=== PATIENT | male | born 1955 | race Caucasian/White ===

== ENCOUNTER 2019-10-28 09:04 | Outpatient (CLI) | payer OTHER | END 2019-10-28 09:05 | disposition EMS.NT | LOC: EMS 09:04 | PROVIDERS: ATTEND Surgery | DX: R68.84 Jaw pain (principal); H53.8 Other visual disturbances; R03.0 Elevated blood-pressure reading, without diagnosis of hypertension ==

== ENCOUNTER 2020-09-25 23:01 | Emergency (ER) | payer OTHER ==
[2020-09-25] MEDS ORDERED: SODIUM CHLORIDE 0.9% 1,000 ML IV STA (23:38)
[2020-09-25] MEDS ORDERED: KETOROLAC 15 MG/ML VIAL IVP STA (23:38)
[2020-09-25] MEDS ORDERED: HYDROmorphone 1 MG/ML CARPUJECT IVP STA (23:38)
[2020-09-25] MEDS ORDERED: IOPAMIDOL-300 100 ML VIAL ONE (23:46)
[2020-09-26 00:04] LABS: BASOPHILS # (AUTO) 0.1 10^3/uL (0.0-0.1); BASOPHILS % (AUTO) 0.3 %; EOSINOPHILS # (AUTO) 0.1 10^3/uL (0.0-0.7); EOSINOPHILS % (AUTO) 0.7 %; HCT - HEMATOCRIT 46.4 % (42.0-52.0); HGB - HEMOGLOBIN 15.5 g/dL (14.0-18.0); LYMPHOCYTES # (AUTO) 1.9 10^3/uL (1.5-3.5); LYMPHOCYTES % (AUTO) 11.3 %; MEAN CORPUSCULAR HEMOGLOBIN 28.7 pg (27.0-31.0); MEAN CORPUSCULAR HGB CONC 33.4 g/dL (32.0-36.0); MEAN CORPUSCULAR VOLUME 85.8 fL (80.0-94.0); MEAN PLATELET VOLUME 12.2 fL (7.4-11.4); MONOCYTES # (AUTO) 1.2 10^3/uL (0.0-1.0); MONOCYTES % (AUTO) 7.3 %; NEUTROPHILS # (AUTO) 13.2 10^3/uL (1.5-6.6); NEUTROPHILS % (AUTO) 79.8 %; PLT - PLATELET COUNT 194 10^3/uL (130-450); RED BLOOD COUNT 5.41 10^6/uL (4.70-6.10); RED CELL DISTRIBUTION WIDTH 12.7 % (12.0-15.0); WHITE BLOOD COUNT 16.5 x10^3/uL (4.8-10.8)
[2020-09-26 00:08] LABS: BILIRUBIN,URINE NEGATIVE (NEGATIVE); GLUCOSE, URINE (UA) NEGATIVE (NEGATIVE); KETONES,URINE (UA) NEGATIVE (NEGATIVE); LEUKOCYTE ESTERASE, URINE NEGATIVE (NEGATIVE); NITRITE,URINE NEGATIVE (NEGATIVE); OCCULT BLOOD,URINE NEGATIVE (NEGATIVE); PH,URINE 5.5 PH (5.0-7.5); PROTEIN,URINE NEGATIVE (NEGATIVE); UROBILINOGEN,URINE 0.2 (NORMAL) E.U./dL (NORMAL)
[2020-09-26 00:10] LABS: CLARITY,URINE CLEAR (CLEAR)
[2020-09-26 00:18] LABS: ALBUMIN 4.9 g/dL (3.2-5.5); ALBUMIN/GLOBULIN RATIO 1.1 (1.0-2.2); ALKALINE PHOSPHATASE 78 IU/L (42-121); ALT ALANINE AMINOTRANSFERASE 35 IU/L (10-60); AST ASPARTATE AMINOTRANSFERASE 30 IU/L (10-42); BUN - BLOOD UREA NITROGEN 34 mg/dL (6-20); CALCIUM 9.7 mg/dL (8.5-10.3); CARBON DIOXIDE - CO2 24 mmol/L (21-32); CHLORIDE 102 mmol/L (101-111); CREATININE 1.6 mg/dL (0.6-1.2); ETOH - ETHANOL < 5.0 mg/dL; GFR - MDRD 44 (>89); GLUCOSE 144 mg/dL (70-100); LIPASE 32 U/L (22-51); MAGNESIUM 2.1 mg/dL (1.7-2.8); POTASSIUM 4.3 mmol/L (3.5-5.0); SODIUM 136 mmol/L (135-145); TOTAL PROTEIN 9.4 g/dL (6.7-8.2)
[2020-09-26] MEDS ORDERED: IOPAMIDOL-300 100 ML VIAL IVP ONE (00:47)
--- NOTE | 2020-09-26 00:53 | ED Physician Documentation ---
PD HPI ABD PAIN - Stated complaint Stated Complaint: SOA - Chief complaint Chief Complaint: Abd Pain - History obtained from History obtained from: Patient - History of Present Illness Timing - onset: How many weeks ago (1) Timing - duration: Weeks (1) Timing - details: Gradual onset, Still present Quality: Cramping, Aching (The patient started with pain in the right mid to lower abdomen about a week ago which persisted and is associated with distention of the abdomen. He now feels distended enough abdomen to have dyspnea into the right chest area.), Fullness/distended (gradual onset/worsening over 5-6 days), Pain Location: Periumbilical, RLQ Radiation: Right flank Improved by: No: BM Worsened by: Eating, Moving, Palpation Associated symptoms: Nausea, Loss of appetite, Other (abdominal distension with now dyspnea when lying.). No: Fever, Diarrhea, Constipation Similar symptoms before: Has not had sx before Recently seen: Clinic (got COVID vaccine 2nd shot just over 2 weeks ago. No real symptoms afterward, just sore arm few days.), Not recently seen, Other (had run out of 2 usual meds metoprolol and chlorthalidone, about 4-5 days ago, but was already having the right abd pain at that point. Trying to get refill through his pharmacy.) Review of Systems Constitutional: denies: Fever, Chills Nose: denies: Rhinorrhea / runny nose, Congestion Throat: denies: Sore throat Cardiac: denies: Chest pain / pressure, Palpitations Respiratory: reports: Dyspnea (just the past day with abd fullness increased). denies: Cough GI: reports: Abdominal Pain, Abdominal Swelling, Nausea. 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 ) Respiratory: None Neuro: None Endocrine/Autoimmune: None GI: Hepatitis (Prior Hep C and underwent treatment for it few years ago without problems. No prior inflammation of the liver. ) : None - Past Surgical History Past Surgical History: Yes Cardiovascular: CABG - Present Medications Home Medications: Ambulatory Orders Medication Instructions Recorded Confirmed Amlodipine Besylate [Norvasc] 10 mg PO DAILY 09/25/20 09/25/20 Atorvastatin Calcium 40 mg PO DAILY 09/25/20 09/25/20 Chlorthalidone 25 mg PO DAILY 09/25/20 09/25/20 Losartan Potassium [Cozaar] 100 mg PO DAILY 09/25/20 09/25/20 Metoprolol Tartrate [Lopressor] 25 mg PO DAILY 09/25/20 09/25/20 Spironolactone [Aldactone] 25 mg PO DAILY 09/25/20 09/25/20 Chlorthalidone 25 mg PO DAILY 10 Days #10 tablet 09/26/20 Docusate Sodium 100Mg Capsule 100 mg PO DAILY #10 cap 09/26/20 [Colace 100Mg Capsule] Ibuprofen [Motrin] 600 mg PO TID PRN #15 tab 09/26/20 Metoprolol Tartrate [Lopressor] 25 mg PO DAILY 10 Days #10 tablet 09/26/20 Ondansetron Odt [Zofran] 4 mg TL Q6H PRN #10 tablet 09/26/20 - Allergies Allergies/Adverse Reactions: Allergies Allergy/AdvReac Type Severity Reaction Status Date / Time oxycodone [From OxyContin] AdvReac Hallucinati Verified 09/25/20 23:04 ons - Social History Does the pt smoke?: No Smoking Status: Never smoker Does the pt drink ETOH?: No Does the pt have substance abuse?: No - Immunizations Immunizations are current?: Yes PD ED PE NORMAL - Vitals Vital signs reviewed: Yes - General General: Alert and oriented X 3, Well developed/nourished, Other (appears uncomfortable due to abd distension and pain. Lungs are clear and breathing unlabored. ) - HEENT HEENT: PERRL, EOMI (nonicteric), Pharynx benign - Neck Neck: Supple, no meningeal sign, No adenopathy - Cardiac Cardiac: RRR (mild tachycardic), No murmur - Respiratory Respiratory: No respiratory distress, Clear bilaterally - Abdomen Abdomen: Soft, Other (tensely distended with general mild tenderness. Main focal tenderness RLQ with local guarding and percussion tender. ). No: Normal bowel sounds (absent/minimal sounds) - Male Male : Deferred - Rectal Rectal: Deferred - Back Back: No CVA TTP - Derm Derm: Normal color, Warm and dry - Extremities Extremities: No tenderness to palpate, No edema, No calf tenderness / cord - Neuro Neuro: Alert and oriented X 3, No motor deficit, Normal speech Results - Vitals Vitals: Vital Signs - 24 hr 09/25/20 09/25/20 09/26/20 23:04 23:30 00:00 Temperature 36.7 C Heart Rate 100 109 H 103 H Respiratory 24 19 18 Rate Blood Pressure 174/100 H 128/96 H 133/100 H O2 Saturation 95 98 98 09/26/20 00:30 Temperature 36.5 C Heart Rate 98 Respiratory 16 Rate Blood Pressure 130/96 H O2 Saturation 99 Oxygen O2 Source Room air - Labs Labs: Laboratory Tests 09/25/20 09/25/20 09/26/20 23:58 23:58 00:00 WBC 16.5 H RBC 5.41 Hgb 15.5 Hct 46.4 MCV 85.8 MCH 28.7 MCHC 33.4 RDW 12.7 Plt Count 194 MPV 12.2 H Neut # (Auto) 13.2 H Lymph # (Auto) 1.9 [place] # (Auto) 1.2 H Eos # (Auto) 0.1 Baso # (Auto) 0.1 Absolute Nucleated RBC 0.00 Nucleated RBC % 0.0 Sodium 136 Potassium 4.3 Chloride 102 Carbon Dioxide 24 Anion Gap 10.0 BUN 34 H Creatinine 1.6 H Estimated GFR (MDRD) 44 L Glucose 144 H Calcium 9.7 Magnesium 2.1 Total Bilirubin 1.0 AST 30 ALT 35 Alkaline Phosphatase 78 Total Protein 9.4 H Albumin 4.9 Globulin 4.5 H Albumin/Globulin Ratio 1.1 Lipase 32 Urine Color YELLOW Urine Clarity CLEAR Urine pH 5.5 Ur Specific [place] 1.025 Urine Protein NEGATIVE Urine Glucose (UA) NEGATIVE Urine Ketones NEGATIVE Urine Occult Blood NEGATIVE Urine Nitrite NEGATIVE Urine Bilirubin NEGATIVE Urine Urobilinogen 0.2 (NORMAL) Ur Leukocyte Esterase NEGATIVE Ur Microscopic Review NOT INDICATED Urine Culture Comments NOT INDICATED Ethyl Alcohol < 5.0 - Rads (name of study) chest xray Radiology: Prelim report reviewed (no acute infiltrates nor fluid.), See rad report abd CT Radiology: Prelim report reviewed (normal without acute process (normal appendix, no ascites, no perforation, no obstruction).), See rad report PD MEDICAL DECISION MAKING - ED course Complexity details: reviewed results (CT abd not showing any acute process. Interesting. WBC elevated. Not sure what is the process then. Coached him to recheck in 24-36 hours. ), re-evaluated patient, considered differential (Presents with dyspnea which seems to relate to his abdominal distention and pushing up of the diaphragm. He started with abdominal pain in the right lower quadrant associated with distention nausea but normal bowel movements. No prior abdominal surgeries. Consideration for appendicitis with ileus.), d/w patient ED course: no leg edema and does not seem fluid overload, so doubt ascitic distension. Decreased bowel sounds. Pain RLQ. may be ileus instead with abd process such as appendix or such. CT reading is normal (everything). As such, it would be hard to justify OBS for this. He states his pain is lessened. Will discharge with instructions for close followup and return to ER in 30-36 hours if not improved, sooner if worse. Departure - Departure Clinical Impression: Right lower quadrant abdominal pain, Abdominal distension Leukocytosis Qualifiers: Leukocytosis type: unspecified Qualified Code(s): D72.829 - Elevated white blood cell count, unspecified Clinical Impression: (Ruled Out): Appendicitis Condition: Stable Record reviewed to determine appropriate education?: Yes Instructions: ED Abdominal Pain Unkn Cause Follow-Up: Beltran Capone MD [Primary Care Provider] - Prescriptions: Chlorthalidone 25 mg PO DAILY 10 Days #10 tablet Docusate Sodium 100Mg Capsule [Colace 100Mg Capsule] 100 mg PO DAILY #10 cap Metoprolol Tartrate [Lopressor] 25 mg PO DAILY 10 Days #10 tablet Ibuprofen [Motrin] 600 mg PO TID PRN #15 tab PRN Reason: Pain Ondansetron Odt [Zofran] 4 mg TL Q6H PRN #10 tablet PRN Reason: Nausea / Vomiting Comments: Its not clear the cause of your abdominal pain and distention at this time. Your CT scan is read as a normal appendix and gallbladder and no signs of obstruction, tumors, ascites or kidney stone. However it is concerning that you have had the pain on the right side in the stomach distention. I would suggest some anti-inflammatory such as ibuprofen with food 3 times a day for the next 2 to 3 days as well as a stool softener and medication for nausea and pain. Continue usual medications and I wrote short-term prescription for the two you had run out of. I do not believe being out of those medicines is the cause for your current symptoms though. I would urge you to recheck here in the ER if your symptoms have not improved significantly by which is in 1-1/2 days. Return sooner if worsened. No need in particular for follow-up if you are just feeling better.
[2020-09-26] MEDS ORDERED: SENNA 8.6 MG TABLET PO STA (01:54)
[2020-09-26] MEDS ORDERED: METOPROLOL SUCCINATE 25 MG TABLET PO STA (01:54)
[2020-09-26] MEDS ORDERED: DOCUSATE SODIUM 100 MG CAPSULE PO STA (01:54)
[2020-09-26 02:08] VITALS: BP 127/73
--- NOTE | 2020-09-26 08:23 | XRAY Report ---
PROCEDURE: Chest 1 View X-Ray INDICATIONS: chest pain TECHNIQUE: One view of the chest was acquired. COMPARISON: Prior two-view chest 02/19/2016. FINDINGS: Surgical changes and devices: Sternotomy wires, presumed prior CABG.. Lungs and pleura: No pleural effusions or pneumothorax. Lungs are clear considering reduced inspira tory volume. There is crowding of the bronchovascular markings at each lower lung.. Mediastinum: Mediastinal contours appear normal. Heart size is normal. Bones and chest wall: No suspicious bony lesions. Overlying soft tissues appear unremarkable. IMPRESSION: Reduced inspiratory volume, lung base atelectasis. Given the reduced inspiration presence or absence of mild or early pneumonia at each lung base cannot be entirely excluded. Reviewed by: Reggie Valderrama MD on 09/26/2020 8:22 AM PDT Approved by: Reggie Valderrama MD on 09/26/2020 8:22 AM PDT Station ID: [id number]
--- NOTE | 2020-09-26 09:22 | CT Report ---
PROCEDURE: Abdomen/Pelvis W INDICATIONS: RLQ pain and abd distension for few days CONTRAST: IV CONTRAST: Isovue 300 ml: 100 PO CONTRAST: *NO PO CONTRAST TECHNIQUE: After the administration of IV contrast, 5 mm thick sections acquired from the diaphragms to the symp hysis. 5 mm thick coronal and sagittal reformats were acquired. For radiation dose reduction, the f ollowing was used: automated exposure control, adjustment of mA and/or kV according to patient size. COMPARISON: None. FINDINGS: Image quality: Excellent. ABDOMEN: Lung bases: Scattered subsegmental scarring/atelectasis. No acute consolidation. Heart:Normal. Severe coronary artery calcifications are present. Liver: Normal. There is trace perihepatic fluid. Gallbladder: Negative Bile ducts: Normal. Pancreas: Normal. Spleen: Normal. Adrenals: Normal. Kidneys: Subcentimeter renal foci which are statistically cysts, however too to characterize accurate ly and therefore technically indeterminate. No hydronephrosis. Stomach: Normal. Bowel: Normal. Normal appendix. Other: No free fluid or air. Abdominal nodes: Normal Aorta: Normal. Scattered vascular calcifications are present in the aorta. IVC: Normal. Ventral wall: Normal. Gynecomastia is incidentally noted. PELVIS: Bladder: Normal. Pelvic nodes: Normal. Inguinal: No hernia. Bones: Spondylosis and diffuse facet arthropathy. Sternotomy wires. IMPRESSION: No acute abnormality. Severe coronary artery atherosclerosis Gynecomastia incidentally noted Normal appendix. Additional chronic and incidental findings as above. Findings are concordant with the preliminary laura dy interpretation provided at the time of the study. Reviewed by: Colin Truong MD on 09/26/2020 9:21 AM PDT Approved by: Colin Truong MD on 09/26/2020 9:21 AM PDT Station ID: [id number]
== END 2020-09-26 02:15 | disposition home or self-care (01) ==
LOC: ED 23:01
DX: R14.0 Abdominal distension (gaseous) (principal); D72.829 Elevated white blood cell count, unspecified; I10 Essential (primary) hypertension; I25.2 Old myocardial infarction; Z95.1 Presence of aortocoronary bypass graft; Z86.19 Personal history of other infectious and parasitic diseases; Z79.899 Other long term (current) drug therapy
CPT/HCPCS: 36415; 71045; 74177; 80053; 80320; 81003; 83690; 83735; 85025; 96374; 96375; 99284; A9270; J1170; Q9967; 81001; 87086